=== PATIENT | male | born 1960 | race Caucasian/White ===

== ENCOUNTER 2017-10-22 12:14 | Emergency (ER) | payer OTHER ==
--- OUTSIDE RECORDS SUMMARY | 2017-10-22 12:18 | XMS REPORT | Clinical Summary ---
:1960 Author Organization [facility] Address [address] [place] [address] Care Team Providers Name Role Phone Osiel Summers MD Primary Care Provider Allergies Not on File Current Medications Not on file Active Problems Not on file Social History Tobacco Use Types Packs/Day Years Used Date Never Assessed Sex Assigned at Date Recorded Not on file Last Filed Vital Signs Not on file Plan of Treatment Health Maintenance Due Date Last Done Comments COLON CANCER SCREENING 09/23/2009 SHINGRIX VACCINE (#1) 09/23/2009 INFLUENZA VACCINE 12/28/2017 Results Not on fileafter 10/21/2016 Insurance Payer Benefit Plan / Group Subscriber ID Type Phone Address [employer]WORK xxxxxxxxxxx HMO
[2017-10-22] MEDS ORDERED: NA CHLORIDE 0.9% 1,000 ML ONE (13:06)
[2017-10-22 13:43] LABS: Absolute Lymphocytes (CBC) 1.3 K/uL (0.7-4.9); Absolute Monocytes 0.8 K/uL (0.1-1.3); Absolute Neutrophil 5.9 K/uL (1.8-8.0); Basophils % 0.6 % (0-1.3); Eosinophils % 2.3 % (0-4.4); Hematocrit 46.1 % (39.6-49.0); Lymphocytes % 15.7 % (15.3-44.8); MCH 28.9 pg (27.0-35.0); MCV 86.3 fL (80-100); Monocytes % 10.2 % (3.3-12.3); RBC Red Blood Cell Count 5.35 M/uL (4.33-5.43)
[2017-10-22 13:45] LABS: Potassium 4.2 mEq/L (3.6-5.0)
[2017-10-22 13:51] LABS: Albumin 4.5 g/dL (3.2-5.5); Bilirubin Direct 0.1 mg/dL (0-0.2); Bilirubin Total 0.7 mg/dL (0.3-1.2); Protein, Total 7.9 g/dL (6.0-8.3)
[2017-10-22 14:25] LABS: Urine Bacteria NONE SEEN /HPF (NONE SEEN); Urine Culture Reflex Order NOT NEEDED; Urine RBC <5 /HPF (NONE SEEN)
[2017-10-22 14:41] LABS: Urine Blood TRACE (NEG); Urine Glucose NEGATIVE (NEG); Urine Protein NEGATIVE (NEG); Urine Specific Gravity 1.015 (1.005-1.030); Urine pH 7.5 (5.0-7.0)
--- NOTE | 2017-10-22 16:02 | RAD REPORT ---
EXAM DESCRIPTION: CTAbdomen Pelvis W Contrast - 10/22/2017 3:50 pm CLINICAL HISTORY: Abdominal pain. COMPARISON: None. TECHNIQUE: Biphasic CT imaging of the abdomen and pelvis was performed with 100 ml non-ionic IV cont rast. All CT scans are performed using dose optimization technique as appropriate and may include automated exposure control or mA/KV adjustment according to patient size. FINDINGS: The lung bases are clear. The liver demonstrates diffuse fatty infiltration. The spleen, pancreas, adrenal glands and kidneys a re within normal limits. No bowel obstruction, free air, free fluid or abscess. Appendix appears surgically absent. Mild subc utaneous fat stranding and fascial thickening with a small amount of subcutaneous air seen in the rig ht lower quadrant soft tissues. No drainable abscess seen. Small fat containing right inguinal hernia . No evidence of significant lymphadenopathy. No suspicious bony findings. IMPRESSION: Mild infectious/ inflammatory findings are suspected in the right lower quadrant soft ti ssues. No drainable abscess collection. Fatty liver.
[2017-10-22] MEDS ORDERED: CLINDAMYCIN 900MG/D5W 900 MG/50 ML BAG IV ONE (16:11)
[2017-10-22] MEDS ORDERED: NA CHLORIDE 0.9% 100 ML IV ONE (16:12)
--- NOTE | 2017-10-22 16:54 | ER ---
Nurse's Notes [facility] Name: Olegario Nunez Age: 57 yrs Sex: Male : 1960 Arrival Date: 10/22/2017 Time: 12:19 Bed 24 Private MD: Osiel Summers Diagnosis: Subcutaneous infection of recent surgical site Presentation: 10/22 12:44 Presenting complaint: Patient states: patient states he had sx October 18, 2017 to remove ae1 "scar tissue" from a previous appendectomy and is now experiencing pain, redness and swelling to the lower right abdomen and right flank, that presented this morning. Transition of care: patient was not received from another setting of care. Transition of care: patient was not received from another setting of care. Onset of symptoms was October 22, 2017 at 08:00. Initial Sepsis Screen: Does the patient meet any 2 criteria? No. Patient's initial sepsis screen is negative. Does the patient have a suspected source of infection? Yes: Skin breakdown/wound. Care prior to arrival: None. 12:44 Method Of Arrival: Ambulatory ae1 12:44 Acuity: ALEJANDRO 2 ae1 17:16 Risk Assessment: Do you want to hurt yourself or someone else? Patient reports no tl3 desire to harm self or others. Triage Assessment: 12:49 General: Appears in no apparent distress. comfortable, Behavior is calm, cooperative. ae1 Pain: Complains of pain in posterior aspect of right lateral abdomen and right lower quadrant Pain currently is 3 out of 10 on a pain scale. Neuro: Level of Consciousness is awake, alert, obeys commands, Oriented to person, place, time, situation. Respiratory: Airway is patent Respiratory effort is even, unlabored, Respiratory pattern is regular, symmetrical. GI: Abdomen is round. Derm: Healing surgical incision, with sutures in place, significant redness and swelling to lower right abdomen, extending to right flank. Historical: - Allergies: 12:49 No Known Allergies; ae1 - Home Meds: 12:49 proair rescue inhaler. [Active]; ae1 - PMHx: 12:49 Asthma; ae1 - PSHx: 12:49 Appendectomy; scar tissue removal; Hernia repair; ae1 - Immunization history:: Flu vaccine is not up to date. - Social history:: Smoking status: Patient/guardian denies using tobacco. - Ebola Screening: : Patient negative for fever greater than or equal to 101.5 degrees Fahrenheit, and additional compatible Ebola Virus Disease symptoms Patient denies exposure to infectious person. Screenin:53 Abuse screen: Denies threats or abuse. Nutritional screening: No deficits noted. tl3 Tuberculosis screening: No symptoms or risk factors identified. Fall Risk None identified. Assessment: 13:11 General: Appears in no apparent distress. uncomfortable, Behavior is calm, cooperative. rv Pain: Complains of pain in posterior aspect of right lateral abdomen, right upper quadrant and right lower quadrant. Neuro: Level of Consciousness is awake, alert, obeys commands, Oriented to person, place, time, situation. Cardiovascular: Pulses are all present. Respiratory: Breath sounds are clear. GI: No signs and/or symptoms were reported involving the gastrointestinal system. : No signs and/or symptoms were reported regarding the genitourinary system. EENT: No signs and/or symptoms were reported regarding the EENT system. Derm: Reports pain that is 3 out of 10 on a pain scale. Musculoskeletal: No signs and/or symptoms reported regarding the musculoskeletal system. 13:53 Reassessment: Patient and/or family updated on plan of care and expected duration. Pain tl3 level reassessed. Patient is alert, oriented x 3, equal unlabored respirations, skin warm/dry/pink. pt started drinking contrast. 14:51 Reassessment: Patient appears in no apparent distress at this time. No changes from tl3 previously documented assessment. Patient and/or family updated on plan of care and expected duration. Pain level reassessed. Patient is alert, oriented x 3, equal unlabored respirations, skin warm/dry/pink. pillow offered, pt awaiting CT, finished contrast at 1:50. 15:55 Reassessment: Patient appears in no apparent distress at this time. No changes from tl3 previously documented assessment. Patient and/or family updated on plan of care and expected duration. Pain level reassessed. Patient is alert, oriented x 3, equal unlabored respirations, skin warm/dry/pink. pt to CT. 17:14 Reassessment: Patient appears in no apparent distress at this time. No changes from tl3 previously documented assessment. Patient and/or family updated on plan of care and expected duration. Pain level reassessed. Patient is alert, oriented x 3, equal unlabored respirations, skin warm/dry/pink. Vital Signs: 12:47 BP 143 / 90; Pulse 81; Resp 16; Temp 98.1; Pulse Ox 97% on R/A; Weight 97.52 kg (R); ae1 Pain 3/10; 13:13 BP 132 / 105; Pulse 83; Resp 16; Pulse Ox 97% on R/A; rv 13:53 BP 134 / 95; Pulse 100; Resp 16; Pulse Ox 98% ; tl3 15:30 BP 131 / 99; Pulse 76; Resp 18; Pulse Ox 97% on R/A; tl3 17:14 BP 141 / 97; Pulse 75; Resp 18; Pulse Ox 97% on R/A; tl3 ED Course: 12:19 Patient arrived in ED. mr 12:19 Osiel Summers MD is Private Physician. mr 12:47 Triage completed. ae1 12:51 Arm band placed on left wrist. ae1 12:57 Joyce [facility]-C [facility]. snw 12:57 Cortez Garcia MD is Attending Physician. snw 13:14 Inserted saline lock: 20 gauge in left antecubital area, using aseptic technique. rv 13:21 Procalcitonin Sent. rv 13:40 Note: pt wanting to speak with joyce before proceeding with ct/ po contrast left with cw1 pt. 13:53 Dagmar Valdovinos, RN is Primary Nurse. tl3 13:53 Patient has correct armband on for positive identification. Placed in gown. Bed in low tl3 position. Call light in reach. Side rails up X 1. Adult w/ patient. Pulse ox on. NIBP on. 13:53 No provider procedures requiring assistance completed. tl3 15:50 CT Abd/Pelvis - W/Contrast In Process Unspecified. EDMS 15:[address] tl3 16:54 Osiel Summers MD is Referral Physician. snw 17:14 IV discontinued, intact, bleeding controlled, No redness/swelling at site. Pressure tl3 dressing applied. Administered Medications: 13:09 Drug: NS 0.9% 1000 ml Route: IV; Rate: 1 bolus; Site: right antecubital; rv 14:10 Follow up: IV Status: Completed infusion; IV Intake: 1000ml tl3 16:15 Drug: Clindamycin 900 mg Route: IVPB; Infused Over: 30 mins; Site: right antecubital; tl3 Delivery: Primary tubing; 17:15 Follow up: IV Status: Completed infusion; IV Intake: 50ml tl3 Intake: 14:10 IV: 1000ml; Total: 1000ml. tl3 17:15 IV: 50ml; Total: 1050ml. tl3 Outcome: 16:54 Discharge ordered by MD. hernadez 17:14 Discharged to home ambulatory. tl3 17:14 Condition: stable 17:14 Discharge instructions given to patient, family, Instructed on discharge instructions, follow up and referral plans. medication usage, Demonstrated understanding of instructions, follow-up care, medications, wound care, Prescriptions given X 3. 17:17 Patient left the ED. tl3 Signatures: Dispatcher [employer] EDMS Joyce Mena, TURBINE OPERATOR-C TURBINE OPERATOR-CsnCarline Morris mr Whitney, Florina cw1 Keron Perry RN RN ae1 Dagmar Valdovinos RN RN tl3 Aleks Rossi RN RN rv
--- NOTE | 2017-10-22 16:54 | EDPHYS ---
Physician Documentation [facility] Name: Olegario Nunez Age: 57 yrs Sex: Male : 1960 Arrival Date: 10/22/2017 Time: 12:19 Bed 24 Private MD: Osiel Summers ED Physician Cortez Garcia HPI: 10/22 13:16 This 57 yrs old Male presents to ER via Ambulatory with complaints of snw Surgical sight infection. 13:16 The patient represents for recheck after previously being evaluated for recent surgical snw procedure, concerned for infection. Previous care: none. Present symptoms: pt with improved symptoms but now with symptoms of infection. The patient has not experienced similar symptoms in the past. The patient has been recently seen by a physician: Dr. Pacheco. Surgery on 10/20/17. Historical: - Allergies: 12:49 No Known Allergies; ae1 - Home Meds: 12:49 proair rescue inhaler. [Active]; ae1 - PMHx: 12:49 Asthma; ae1 - PSHx: 12:49 Appendectomy; scar tissue removal; Hernia repair; ae1 - Immunization history:: Flu vaccine is not up to date. - Social history:: Smoking status: Patient/guardian denies using tobacco. - Ebola Screening: : Patient negative for fever greater than or equal to 101.5 degrees Fahrenheit, and additional compatible Ebola Virus Disease symptoms Patient denies exposure to infectious person. ROS: 13:15 Constitutional: Negative for fever, chills, and weight loss, Eyes: Negative for injury, snw pain, redness, and discharge, ENT: Negative for injury, pain, and discharge, Neck: Negative for injury, pain, and swelling, Cardiovascular: Negative for chest pain, palpitations, and edema, Respiratory: Negative for shortness of breath, cough, wheezing, and pleuritic chest pain, Back: Negative for injury and pain, : Negative for injury, bleeding, discharge, and swelling, MS/Extremity: Negative for injury and deformity, Skin: Negative for injury, rash, and discoloration, Neuro: Negative for headache, weakness, numbness, tingling, and seizure, Psych: Negative for depression, anxiety, suicide ideation, homicidal ideation, and hallucinations. 13:15 Abdomen/GI: Positive for recent abdominal surgery - revision of scar tissue from appy, area now without pain but with warmth and erythema. Exam: 13:10 Constitutional: This is a well developed, well nourished patient who is awake, alert, snw and in no acute distress. Head/Face: Normocephalic, atraumatic. Eyes: Pupils equal round and reactive to light, extra-ocular motions intact. Lids and lashes normal. Conjunctiva and sclera are non-icteric and not injected. Cornea within normal limits. Periorbital areas with no swelling, redness, or edema. ENT: Nares patent. No nasal discharge, no septal abnormalities noted. Tympanic membranes are normal and external auditory canals are clear. Oropharynx with no redness, swelling, or masses, exudates, or evidence of obstruction, uvula midline. Mucous membranes moist. Neck: Trachea midline, no thyromegaly or masses palpated, and no cervical lymphadenopathy. Supple, full range of motion without nuchal rigidity, or vertebral point tenderness. No Meningismus. Chest/axilla: Normal chest wall appearance and motion. Nontender with no deformity. No lesions are appreciated. Cardiovascular: Regular rate and rhythm with a normal S1 and S2. No gallops, murmurs, or rubs. Normal PMI, no JVD. No pulse deficits. Respiratory: Lungs have equal breath sounds bilaterally, clear to auscultation and percussion. No rales, rhonchi or wheezes noted. No increased work of breathing, no retractions or nasal flaring. Abdomen/GI: Soft, non-tender, with normal bowel sounds. No distension or tympany. No guarding or rebound. No evidence of tenderness throughout. + abdomen with recent surgical incision, well approximated, no dc. Lateral aspect of incison with erythema confluent to right iliac crest Back: No spinal tenderness. No costovertebral tenderness. Full range of motion. Skin: Warm, dry with normal turgor. Normal color with no rashes, no lesions, and no evidence of cellulitis. MS/ Extremity: Pulses equal, no cyanosis. Neurovascular intact. Full, normal range of motion. Neuro: Awake and alert, GCS 15, oriented to person, place, time, and situation. Cranial nerves II-XII grossly intact. Motor strength 5/5 in all extremities. Sensory grossly intact. Cerebellar exam normal. Normal gait. Vital Signs: 12:47 BP 143 / 90; Pulse 81; Resp 16; Temp 98.1; Pulse Ox 97% on R/A; Weight 97.52 kg (R); ae1 Pain 3/10; 13:13 BP 132 / 105; Pulse 83; Resp 16; Pulse Ox 97% on R/A; rv 13:53 BP 134 / 95; Pulse 100; Resp 16; Pulse Ox 98% ; tl3 15:30 BP 131 / 99; Pulse 76; Resp 18; Pulse Ox 97% on R/A; tl3 17:14 BP 141 / 97; Pulse 75; Resp 18; Pulse Ox 97% on R/A; tl3 MDM: 12:59 Patient medically screened. snw 16:55 Data reviewed: vital signs, nurses notes. Data interpreted: Pulse oximetry: on room air snw is 97 %. Interpretation: normal. Counseling: I had a detailed discussion with the patient and/or guardian regarding: the historical points, exam findings, and any diagnostic results supporting the discharge/admit diagnosis, the presence of at least one elevated blood pressure reading (>120/80) during this emergency department visit, lab results, radiology results, the need for outpatient follow up, to return to the emergency department if symptoms worsen or persist or if there are any questions or concerns that arise at home. Special discussion: Based on the patient's Hx, exam, and Dx evaluation, there is no indication for emergent surgery or inpatient Tx. It is understood by the patient/guardian that if the Sx's persist or worsen they need to return immediately for re-evaluation. I have referred the patient to see his PCP for further evaluation of high blood pressure. I discussed in detail with the patient the higher chance of wound infection based on his presenting history. Based on the history and exam findings, there is no indication for further emergent testing or inpatient evaluation. I discussed with the patient/guardian the need to see the general surgeon for further evaluation of the symptoms. I discussed with the patient/guardian the need to see the primary care provider for further evaluation of the symptoms. 10/22 13:09 Order name: Basic Metabolic Panel; Complete Time: 13:52 snw 10/22 13:09 Order name: CBC with Diff; Complete Time: 13:52 snw 10/22 13:09 Order name: Hepatic Function; Complete Time: 13:52 snw 10/22 13:09 Order name: Urine Microscopic Only; Complete Time: 14:26 [facility] 10/22 13:09 Order name: Blood Culture Adult (2) [facility] 10/22 13:09 Order name: Procalcitonin; Complete Time: 14:24 [facility] 10/22 13:09 Order name: Labs collected and sent; Complete Time: 13:09 [facility] 10/22 13:09 Order name: Urine Dipstick-Ancillary (obtain specimen); Complete Time: 14:28 [facility] 10/22 13:09 Order name: CT Abd/Pelvis - W/Contrast; Complete Time: 16:03 [facility] 10/22 14:09 Order name: Urine Dipstick--Ancillary (enter results); Complete Time: 14:45 bd Administered Medications: 13:09 Drug: NS 0.9% 1000 ml Route: IV; Rate: 1 bolus; Site: right antecubital; rv 14:10 Follow up: IV Status: Completed infusion; IV Intake: 1000ml tl3 16:15 Drug: Clindamycin 900 mg Route: IVPB; Infused Over: 30 mins; Site: right antecubital; tl3 Delivery: Primary tubing; 17:15 Follow up: IV Status: Completed infusion; IV Intake: 50ml tl3 Disposition: 17:56 Co-signature as Attending Physician, Cortez Garcia MD I agree with the assessment and kdr plan of care. Disposition: 10/22/17 16:54 Discharged to Home. Impression: Subcutaneous infection of recent surgical site. - Condition is Stable. - Discharge Instructions: Abdominal Pain, Adult, Cellulitis, Intestinal Gas and Gas Pains, Pediatric, Heat Therapy. - Prescriptions for Clindamycin HCl 300 mg Oral Capsule - take 1 capsule by ORAL route every 6 hours for 10 days; 40 capsule. Diclofenac Sodium 75 mg Oral Tablet Sustained Release - take 1 tablet by ORAL route 2 times per day; 30 tablet. Miralax 17 gram/dose Oral - take 1 packet by ORAL route once daily dilute powder in 8 ounces of water or juice; 1 box. - Medication Reconciliation Form, Thank You Letter, Antibiotic Education, Prescription Opioid Use form. - Follow up: Osiel Summers; When: 2 - 3 days; Reason: Recheck today's complaints, Continuance of care, Re-evaluation by your physician. Follow up: Emergency Department; When: As needed; Reason: Worsening of condition. Signatures: Dispatcher [employer] EDMS Cortez Garcia MD MD [facility] Joyce Mena, BORING AND FILLING MACHINE OPERATOR-C BORING AND FILLING MACHINE OPERATOR-Csnw Keron Perry, RN RN ae1 Dagmar Valdovinos, RN RN tl3 Aleks Rossi RN RN rv Corrections: (The following items were deleted from the chart) 17:17 16:54 10/22/2017 16:54 Discharged to Home. Impression: Subcutaneous infection of recent tl3 surgical site. Condition is Stable. Discharge Instructions: Cellulitis, Heat Therapy, Abdominal Pain, Adult, Intestinal Gas and Gas Pains, Pediatric. Prescriptions for Clindamycin HCl 300 mg Oral Capsule - take 1 capsule by ORAL route every 6 hours for 10 days; 40 capsule, Diclofenac Sodium 75 mg Oral Tablet Sustained Release - take 1 tablet by ORAL route 2 times per day; 30 tablet, Miralax 17 gram/dose Oral - take 1 packet by ORAL route once daily dilute powder in 8 ounces of water or juice; 1 box. and Forms are Medication Reconciliation Form, Thank You Letter, Antibiotic Education, Prescription Opioid Use. Follow up: Osiel Summers; When: 2 - 3 days; Reason: Recheck today's complaints, Continuance of care, Re-evaluation by your physician. Follow up: Emergency Department; When: As needed; Reason: Worsening of condition. snw
== END 2017-10-22 17:17 | disposition home or self-care (01) ==
LOC: ER 12:14
DX: T81.4XXA Infection following a procedure, initial encounter (principal); J45.909 Unspecified asthma, uncomplicated; Z98.890 Other specified postprocedural states
CPT/HCPCS: 36415; 74177; 80048; 80076; 81003; 81015; 84145; 85025; 87040; 96361; 96365; 99284; J7030; Q9967